=== PATIENT | male | born 1955 | race Caucasian/White ===

== ENCOUNTER 2019-01-29 13:38 | Inpatient (IN) ==
[2019-01-29] MEDS ORDERED: Ondansetron 4 MG/2 ML VIAL IVP PRN (16:13)
[2019-01-29] MEDS ORDERED: Dextrose Gel 15 GM/37.5 ML TUBE PO PRN ×2 (16:30)
[2019-01-29] MEDS ORDERED: *HR* Dextrose 50 % in Water (Syg) 50 ML SYRINGE IVP PRN (16:30)
[2019-01-29] MEDS ORDERED: Potassium Chloride Elixir 20 MEQ/15 ML UDC PO ONE (16:30)
[2019-01-29] MEDS ORDERED: D5% in Water 1,000 ML IVC PRN (16:30)
--- NOTE | 2019-01-29 16:34 | Internal Med History&Physical ---
Date of Encounter: 01/29/19 Time of Encounter: 16:10 Internal Medicine - H&P: HPI Chief complaint: Shortness of breath Admitted From: Hospital to Hospital Transfer Plans for Post Hospital Care: Home History of present illness: Mr. Durán is a 63 year old male with history of COPD on 2 L of oxygen, type II DM, HTN was transferred from [facility] for PNA and elevated BILIRUBIN. Patient was short of breath for 3 weeks duration and he was placed on steroids and antibiotics by his PCP. Shortness of breath did not get any better so he came into [facility]. He has right-sided pleuritic chest pain which increases with deep inspiration. He denied nausea/vomiting/abdominal pain/aching/jaundice however he endorsed cold color urine for the past 3 days. He denied dysuria, hematuria or polyuria. He has no change in his stool color. At [facility], patient had chest x-ray with finding of right lower lobe pneumonia, CT abdomen and pelvis without acute finding. Blood work was significant for leukocytosis with WBC count of 19, lactic acid was normal, elevated bilirubin and ALK.PH. Past Med Surg Social Fam HX - Past Medical History Source: patient Medical history: aortic aneurysm, COPD, diabetes, GERD, hyperlipidemia, hypertension Additional medical history: thoracic aortic aneurysm Psychiatric history: no psych history - Past Surgical History Surgical History: appendectomy, herniorrhaphy, other Additional surgical history: EGD. COLONOSCOPY. 12/28/17 EGD @[facility] W/DR LOFTON - Social History Smoking Status: Former smoker Smokeless Tobacco Status: No Alcohol use: none Drug use: none Current living situation: Home Activity Level: Independent ambulation Recent Out of Country Travel Within the Last 8 Weeks: No Exposure or Possible Exposure to Illness During Travel: No - Family History Mother Adopted: No Family Member Ethnicity: Non- Living Status: Still Living Hx Family Cardiac Disorders: Yes (AAA) Hx Family Cancer: Yes (Breast cancer) Father Living Status: Hx Family Cardiac Disorders: Yes (Father and Mother) Hx Family Respiratory Disorders: No (Sister-COPD) Hx Family Cancer: Yes (sister-metastatic cancer) Hx Family GI Disorders: No Hx Family Endocrine Disorder: Yes (mother-DM) Hx Family Neuromuscular Disorders: No Hx Family Neurologic Disorders: No Hx Family HEENT Disorders: No Hx Family Autoimmune Disorders: No - Additional Family History Additional family history: Reviewed and noncontributory Internal Medicine - H&P: Meds Metformin [Glucophage] 1,000 mg PO BIDWM 01/30/15 [History] Aspirin 81 mg PO DAILY 05/04/16 [History] Lisinopril [Zestril] 5 mg PO DAILY 05/04/16 [History] Pravastatin Sodium [Pravachol] 20 mg PO DAILY 05/04/16 [History] Albuterol Sulfate [Proair Hfa] 2 puff IH Q4H PRN 10/03/17 [History] Mometasone/Formoterol [Dulera 100 Mcg/5 Mcg Inhaler] 13 gm IH BID #1 hfa.aer.ad 10/04/17 [Rx] Fluticasone Propionate [Flovent Diskus] 50 mcg IH DAILY 12/28/17 [History] Ipratropium/Albuterol Sulfate [Combivent Respimat Inhal [place]] 4 gm IH QID 12/28/17 [History] Montelukast [Singulair] 10 mg PO DAILY 12/28/17 [History] Omeprazole [PriLOSEC] 40 mg PO DAILY 12/28/17 [History] Combivent Respimat 20-100 Mcg 1 puff IH QID 04/30/18 [History] Mucinex 1 tab PO Q12HR PRN 04/30/18 [History] Oxygen 2 l IH DAILY PRN 04/30/18 [History] Allergy/AdvReac Type Severity Reaction Status Date / Time No Known Allergies Allergy Verified 02/13/18 15:21 All Systems PM: A 10-system review of systems was performed and is negative for pertinent findings except as documented above in the HPI. - Constitutional Vitals: Temp Pulse Resp BP Pulse Ox 98.3 F 81 16 119/70 91 01/29/19 15:40 01/29/19 15:40 01/29/19 15:40 01/29/19 15:40 01/29/19 15:40 Exam: General: Patient is alert, oriented 3. Head: Atraumatic, normal inspection, Eye: EOMI, PERRLA, ENT: Mucous membranes moist. Neck: Normal inspection, no meningismus. Respiratory: Scattered wheezing, right basilar rhonchi Cardiovascular: Regular rate and regular rhythm, S1 and S2 audible. No murmurs, rubs, or gallops. GI: Soft, nondistended, normal bowel sounds. Extremities:No joint swelling, pedal edema, or tenderness noted. Neurological: Alert, oriented 3, no focal deficits. Psychiatric: normal affect, normal mood. Skin: Dry, intact, warm. Normal color. No rashes. Internal Med - H&P Results - EKG Data EKG shows normal: sinus rhythm - EKG Data Prior EKG available for review: yes When compared to previous EKG: there is no significant change - Assessment and Plan (1) CAP (community acquired pneumonia) Current Visit: Yes Status: Acute Qualifiers: Laterality: right Lung location: lower lobe of lung Qualified Code(s): J18.1 - Lobar pneumonia, unspecified organism (2) DM type 2 (diabetes mellitus, type 2) Current Visit: Yes Status: Chronic Qualifiers: Diabetes mellitus terminal clerk insulin use: without correction use Diabetes mellitus complication status: without complication Qualified Code(s): E11.9 - Type 2 diabetes mellitus without complications (3) Hyperbilirubinemia Current Visit: Yes Status: Acute (4) Hypertension Current Visit: Yes Status: Chronic Qualifiers: Hypertension type: essential hypertension Qualified Code(s): I10 - Essential (primary) hypertension - Summary of Assessment and Plan Summary of Assessment and Plan: Community-acquired Pneumonia: 2/2 PNA, BCx, Streptococcus and Legionella antigens are pending. Continue with Zosyn and azithromycin. Check respiratory viral panel. MRSA swab is pending. On home requirement of 2 L of oxygen. Leukocytosis: 2/2 above, check CBC tomorrow. Hyperbilirubinemia: Likely from sepsis, will check check hepatitis panel. LFT TOMORROW. T2DM: hold oral medications, LSSI TIDAC, ADA diet. COPD: continue home dose inhalers HTN: Continue home medication DVT prophylaxis: Subcutaneous heparin - Time Spent With Patient Total time spent is greater than 50% in coordination of care (as documented) at patient's floor/unit and/or counseling patient:
[2019-01-29] MEDS ORDERED: Azithromycin 500 MG in 0.9 % Sodium Chloride 250 ML IVPB SCH (17:00)
[2019-01-29] MEDS: Acetaminophen 325 MG TABLET PO PRN (17:54)
[2019-01-29] MEDS: 0.9 % Sodium Chloride 1,000 ML IVC SCH (17:59)
[2019-01-29] MEDS: *HR* Heparin 5,000 UNIT/ML VIAL SQ SCH (18:22)
[2019-01-29] MEDS: Insulin LISPRO 300 UNITS/3 ML VIAL SQ SCH (19:29)
[2019-01-29] MEDS: Piperacillin/Tazobactam 3.375 GM in 0.9 % Sodium Chloride Mini Bag 100 ML IVPB SCH (21:28)
[2019-01-29 23:43] LABS: Adenovirus Not Detected (Not Detect); Bordetella Pertussis Not Detected (Not Detect); Chlamydophila pneumoniae Not Detected (Not Detect); Coronavirus 229E Not Detected (Not Detect); Coronavirus HKU1 Not Detected (Not Detect); Coronavirus NL63 Not Detected (Not Detect); Coronavirus OC43 Not Detected (Not Detect); Human Metapneumovirus Not Detected (Not Detect); Human Rhinovirus/Enterovirus DETECTED (Not Detect); Influenza A Subtype 2009 H1 Not Detected (Not Detect); Influenza A Untypeable Not Detected (Not Detect); Influenza B Not Detected (Not Detect); Mycoplasma pneumoniae Not Detected (Not Detect); Parainfluenza Virus 1 Not Detected (Not Detect); Parainfluenza Virus 2 Not Detected (Not Detect); Parainfluenza Virus 3 Not Detected (Not Detect); Parainfluenza Virus 4 Not Detected (Not Detect); Respiratory Syncytial Virus Not Detected (Not Detect)
[2019-01-30] MEDS: *HR* Heparin 5,000 UNIT/ML VIAL SQ SCH ×2 (05:28→18:13)
[2019-01-30 05:59] LABS: Basophils # 0.1 K/mcL (0.0-0.2); Basophils % 0.4 %; Eosinophils # 0.3 K/mcL (0.0-0.6); Hematocrit 33.6 % (37.5-50.1); Hemoglobin 11.1 g/dL (12.9-16.9); Immature Granulocytes % 1.5 % (0-4); Lymphocytes # 1.5 K/mcL (0.6-4.6); Mean Corpuscular Hemoglobin 29.2 pg (28.0-33.3); Mean Corpuscular Volume 88.4 fL (83.0-100.0); Mean Platelet Volume 9.8 fL (9.4-12.4); Monocytes # 1.5 K/mcL (0.0-1.3); Monocytes % 10.9 %; Neutrophils # 10.2 K/mcL (1.6-8.9); Platelet Count 218 K/mcL (140-400); Red Cell Distribution Width 12.6 % (11.5-14.5); Segmented Neutrophils % 74.2 %; White Blood Count 13.7 K/mcL (4.3-11.1)
[2019-01-30 06:56] LABS: BUN/Creatinine Ratio 16 (6-26); Blood Urea Nitrogen 10 mg/dL (8-23); Calcium 8.1 mg/dL (8.6-10.3); Carbon Dioxide 24 mEq/L (23-29); Chloride 103 mEq/L (98-107); Glucose 115 mg/dL (70-105); Magnesium 1.6 mg/dL (1.6-2.6); Osmolality,Calculated 286 (280-300); Phosphorous 2.4 mg/dL (2.7-4.5); Potassium 3.7 mEq/L (3.5-5.1); Sodium 138 mEq/L (136-145); eGFR For African Americans > 60 (> 60); eGFR For Non-African Americans > 60 (> 60)
[2019-01-30] MEDS: Piperacillin/Tazobactam 3.375 GM in 0.9 % Sodium Chloride Mini Bag 100 ML IVPB SCH ×3 (08:17→23:37)
[2019-01-30] MEDS: Acetaminophen 325 MG TABLET PO PRN ×2 (08:17→23:48)
[2019-01-30] MEDS: 0.9 % Sodium Chloride 1,000 ML IVC SCH ×3 (08:18→17:31)
[2019-01-30] MEDS ORDERED: Ipratropium/Albuterol Neb 3 ML IH PRN (08:34)
[2019-01-30 09:53] LABS: Alanine Aminotransferase 17 Units/L (7-52); Albumin 3.1 g/dL (3.5-5.7); Albumin/Globulin Ratio 1.2 (1.1-2.2); Alkaline Phosphatase 224 Units/L (34-104); Aspartate Amino Transferase 12 Units/L (13-39); Bilirubin,Direct 0.6 mg/dL (0.0-0.2); Bilirubin,Indirect 0.6 mg/dL (0.0-1.2); Bilirubin,Total 1.2 mg/dL (0.3-1.0); Globulin 2.6 g/dL (2.4-3.5); Total Protein 5.7 g/dL (6.4-8.9)
[2019-01-30] MEDS: Insulin LISPRO 300 UNITS/3 ML VIAL SQ SCH ×3 (10:35→17:31)
[2019-01-30] MEDS: Ipratropium/Albuterol Neb 3 ML IH SCH ×3 (10:57→22:43)
--- NOTE | 2019-01-30 11:04 | Internal Med Progress Note ---
Hospitalist Progress Note - Encounter Date of Encounter: 01/30/19 Time of Encounter: 08:40 - Subjective Interval History: Patient was seen this morning, he feels better. Still complaining about pleuritic chest pain. He denied nausea/vomiting or abdominal pain. - Exam Vitals: Temp Pulse Resp BP Pulse Ox 98.6 F 84 20 128/74 93 01/30/19 07:08 01/30/19 07:08 01/30/19 07:08 01/30/19 07:08 01/30/19 07:08 Exam: General: Patient is alert, oriented 3. Head: Atraumatic, normal inspection, Eye: EOMI, PERRLA, ENT: Mucous membranes moist. Neck: Normal inspection, no meningismus. Respiratory: Scattered wheezing, right basilar rhonchi Cardiovascular: Regular rate and regular rhythm, S1 and S2 audible. No murmurs, rubs, or gallops. GI: Soft, nondistended, normal bowel sounds. Extremities:No joint swelling, pedal edema, or tenderness noted. Neurological: Alert, oriented 3, no focal deficits. Psychiatric: normal affect, normal mood. Skin: Dry, intact, warm. Normal color. No rashes. - Assessment and Plan (1) CAP (community acquired pneumonia) Current Visit: Yes Status: Acute (2) DM type 2 (diabetes mellitus, type 2) Current Visit: Yes Status: Chronic (3) Hyperbilirubinemia Current Visit: Yes Status: Acute (4) Hypertension Current Visit: Yes Status: Chronic (5) COPD (chronic obstructive pulmonary disease) Current Visit: No Status: Chronic - Summary of Assessment and Plan Summary of Assessment and Plan: Community-acquired Pneumonia: 2/2 PNA, BCx, Streptococcus and Legionella antigens are -. Continue with Zosyn day 2 and DC azithromycin. respiratory viral panel is + for rhino virus. On home requirement of 2 L of oxygen. Leukocytosis: 2/2 above, improving. check CBC tomorrow. Hyperbilirubinemia: Improving, Likely from sepsis, hepatitis panel is pending. LFT TOMORROW. Ultrasound abdomen is negative for cholecystitis. T2DM: hold oral medications, LSSI TIDAC, ADA diet. COPD: continue home dose inhalers, dounebs QID and PRN [id number] HTN: Continue home medication DVT prophylaxis: Subcutaneous heparin - Time Spent with Patient Total time spent is greater than 50% in coordination of care (as documented) at patient's floor/unit and/or counseling patient: Internal Medicine: Result - Labs CBC & Chem 7: 01/30/19 05:47 01/30/19 05:47 Labs: Short CBC 01/30/19 Range/Units 05:47 WBC 13.7 H (4.3-11.1) K/mcL Hgb 11.1 L D (12.9-16.9) g/dL Hct 33.6 L (37.5-50.1) % Plt Count 218 (140-400) K/mcL Neutrophils # 10.2 H (1.6-8.9) K/mcL BMP 01/30/19 05:47 Sodium 138 Potassium 3.7 Chloride 103 Carbon Dioxide 24 BUN 10 Creatinine 0.64 L Glucose 115 H Calcium 8.1 L Liver Function 01/29/19 01/30/19 Range/Units 16:46 05:47 Total Bilirubin 1.2 H (0.3-1.0) mg/dL Direct Bilirubin 0.6 H (0.0-0.2) mg/dL GGT 198 H (2-30) Units/L AST 12 L (13-39) Units/L ALT 17 (7-52) Units/L Alkaline Phosphatase 224 H (34-104) Units/L Albumin 3.1 L (3.5-5.7) g/dL - Impressions Impressions Abdomen Ultrasound 01/30/19 09:15 IMPRESSION: Unremarkable right upper quadrant ultrasound. D/ / 01/30/2019 09:47:45 Anders Hernandez MD / Aurelia Henry Interpreting Provider: Anders Hernandez MD Consult Discharge Plan - [place] [facility] [place] [Primary Care Provider] - __ (1) CAP (community acquired pneumonia) Qualifiers: Laterality: right Lung location: lower lobe of lung Qualified Code(s): J18.1 - Lobar pneumonia, unspecified organism (2) DM type 2 (diabetes mellitus, type 2) Qualifiers: Diabetes mellitus senior living insulin use: without termite control service representative use Diabetes mellitus complication status: without complication Qualified Code(s): E11.9 - Type 2 diabetes mellitus without complications (4) Hypertension Qualifiers: Hypertension type: essential hypertension Qualified Code(s): I10 - Essential (primary) hypertension (5) COPD (chronic obstructive pulmonary disease) Qualifiers: COPD type: unspecified COPD Qualified Code(s): J44.9 - Chronic obstructive pulmonary disease, unspecified
[2019-01-30 11:56] LABS: Hepatitis B Surface Antigen Nonreactive (Nonreactive)
[2019-01-30 12:25] LABS: Hepatitis A Antibody IgM Nonreactive (Nonreactive)
[2019-01-30 12:26] LABS: Hepatitis B Core IgM Nonreactive (Nonreactive); Hepatitis C Virus Antibody Nonreactive (Nonreactive)
[2019-01-30] MEDS ORDERED: Budesonide/Formoterol 160/4.5 1 PUFF INH IH SCH (22:00)
[2019-01-31 01:31] LABS: Hematocrit 33.1 % (37.5-50.1); Hemoglobin 10.5 g/dL (12.9-16.9); Mean Corpuscular HGB Conc 31.7 g/dL (31.6-35.5); Mean Corpuscular Hemoglobin 29.7 pg (28.0-33.3); Mean Corpuscular Volume 93.5 fL (83.0-100.0); Mean Platelet Volume 9.7 fL (9.4-12.4); Platelet Count 241 K/mcL (140-400); Red Blood Count 3.54 M/mcL (4.19-5.50); Red Cell Distribution Width 12.4 % (11.5-14.5); White Blood Count 13.1 K/mcL (4.3-11.1)
[2019-01-31 01:49] LABS: BUN/Creatinine Ratio 11 (6-26); Blood Urea Nitrogen 7 mg/dL (8-23); Carbon Dioxide 23 mEq/L (23-29); Chloride 105 mEq/L (98-107); Glucose 110 mg/dL (70-105); Osmolality,Calculated 285 (280-300); Potassium 3.2 mEq/L (3.5-5.1); Sodium 138 mEq/L (136-145); eGFR For African Americans > 60 (> 60); eGFR For Non-African Americans > 60 (> 60)
[2019-01-31] MEDS ORDERED: Ketorolac 15 MG/ML VIAL IVP ONE (03:46)
[2019-01-31] MEDS: Ipratropium/Albuterol Neb 3 ML IH SCH (03:48)
[2019-01-31] MEDS: *HR* Heparin 5,000 UNIT/ML VIAL SQ SCH (05:14)
[2019-01-31 07:23] VITALS: BP 126/70
[2019-01-31] MEDS: Insulin LISPRO 300 UNITS/3 ML VIAL SQ SCH (07:40)
[2019-01-31] MEDS ORDERED: Potassium Chloride Elixir 20 MEQ/15 ML UDC PO ONE (07:42)
--- NOTE | 2019-01-31 08:01 | Discharge Summary ---
- NOTES TO OUTPATIENT PROVIDER Notes to Outpatient Provider: Patient was admitted for right lower lobe pneumonia and was treated with IV antibiotics. He also had elevated bilirubin likely from his infection with negative abdominal ultrasound. He may need follow-up x-ray in 3 month to confirm resolution. Orders not resulted at time of discharge: Pending orders 01/29/19 16:46 Culture,Blood [BC] Stat 01/30/19 14:00 Culture,Sputum with Gram Stain [RM] Routine Date of Encounter: 01/31/19 Time of Encounter: 08:00 - Discharge Diagnosis (1) CAP (community acquired pneumonia) Priority: Primary Status: Resolved Qualifiers: Laterality: right Lung location: lower lobe of lung Qualified Code(s): J18.1 - Lobar pneumonia, unspecified organism (2) DM type 2 (diabetes mellitus, type 2) Priority: Secondary Status: Chronic Qualifiers: Diabetes mellitus detention insulin use: without vermin exterminator use Diabetes mellitus complication status: without complication Qualified Code(s): E11.9 - Type 2 diabetes mellitus without complications (3) Hyperbilirubinemia Priority: Secondary Status: Resolved (4) Hypertension Priority: Secondary Status: Chronic Qualifiers: Hypertension type: essential hypertension Qualified Code(s): I10 - Essential (primary) hypertension (5) COPD (chronic obstructive pulmonary disease) Priority: Secondary Status: Chronic Qualifiers: COPD type: unspecified COPD Qualified Code(s): J44.9 - Chronic obstructive pulmonary disease, unspecified Hospital course: Mr. Durán is a 63 year old male with history of COPD on 2 L of oxygen, ST and who came into the hospital due to right lower lobe pneumonia. Patient was treated with IV antibiotics with significant improvement in his symptoms. He also had elevated bilirubin which was related to his underlying infection. Ultrasound of the abdomen was negative. Today, patient is hemodynamically stable, afebrile, clinically stable. He will be discharged home in stable condition. He will resume 5 days of antibiotics and steroids and follow up with his PCP in 5 days. Discharge discussed with: patient - Time Spent with Patient Total time spent providing and/or coordinating discharge services: 20 minutes - Discharge Medications Prescriptions: New Amoxicillin/Clavulanate [Augmentin] 875 mg PO BIDWM #10 tablet Continued Lisinopril [Zestril] 5 mg PO DAILY Aspirin 81 mg PO DAILY Pravastatin Sodium [Pravachol] 20 mg PO DAILY Omeprazole [PriLOSEC] 40 mg PO DAILY Montelukast [Singulair] 10 mg PO DAILY Ipratropium/Albuterol Sulfate [Combivent Respimat 20-100 Mcg] 4 gm IH QID Fluticasone Propion/Salmeterol [Wixela 500-50 Inhub] 1 puff PO BID Metformin HCl 1,000 mg PO BID Sertraline [Zoloft] 50 mg PO DAILY Fluticasone Propionate Nasal [Flonase] 50 mcg NS DAILY Albuterol Sulfate [Proair Hfa] 2 puff IH Q4H PRN PRN Reason: Shortness Of Breath Home Medications: Aspirin 81 mg PO DAILY 05/04/16 [History] Lisinopril [Zestril] 5 mg PO DAILY 05/04/16 [History] Pravastatin Sodium [Pravachol] 20 mg PO DAILY 05/04/16 [History] Albuterol Sulfate [Proair Hfa] 2 puff IH Q4H PRN 10/03/17 [History] Montelukast [Singulair] 10 mg PO DAILY 12/28/17 [History] Omeprazole [PriLOSEC] 40 mg PO DAILY 12/28/17 [History] Ipratropium/Albuterol Sulfate [Combivent Respimat 20-100 Mcg] 4 gm IH QID 04/30/18 [History] Fluticasone Propion/Salmeterol [Wixela 500-50 Inhub] 1 puff PO BID 01/30/19 [History] Fluticasone Propionate Nasal [Flonase] 50 mcg NS DAILY 01/30/19 [History] Metformin HCl 1,000 mg PO BID 01/30/19 [History] Sertraline [Zoloft] 50 mg PO DAILY 01/30/19 [History] Amoxicillin/Clavulanate [Augmentin] 875 mg PO BIDWM #10 tablet 01/31/19 [Rx] Allergies/Adverse Reactions: Allergy/AdvReac Type Severity Reaction Status Date / Time No Known Allergies Allergy Verified 02/13/18 15:21 Date of admission: 01/29/19 18:00 Primary care physician: Osei Boyd MD Consults: 01/30/19 08:42 Consult to Nurse Navigator [CONS] Routine Comment: PNEUMONIA - Constitutional Vitals: Temp Pulse Resp BP Pulse Ox 98.3 F 79 16 126/70 95 01/31/19 07:10 01/31/19 07:10 01/31/19 07:10 01/31/19 07:10 01/31/19 07:10 Exam: General: Patient is alert, oriented 3. No distress Head: Atraumatic, normal inspection, Eye: EOMI, PERRLA, ENT: Mucous membranes moist. Neck: Normal inspection, no meningismus. Respiratory: right basilar rhonchi Cardiovascular: Regular rate and regular rhythm, S1 and S2 audible. No murmurs, rubs, or gallops. GI: Soft, nondistended, normal bowel sounds. Extremities:No joint swelling, pedal edema, or tenderness noted. Neurological: Alert, oriented 3, no focal deficits. Psychiatric: normal affect, normal mood. Skin: Dry, intact, warm. Normal color. No rashes. - Patient Status Disposition: Home, Self-Care Condition: Good Functional capacity at discharge: independent ambulation Overall status at discharge: patient is back to baseline - Discharge Instructions Follow Up With: Osei Boyd MD [Primary Care Provider] - - Diet and Activity Activity: resume usual activities as tolerated Diet: low salt diet
[2019-01-31] MEDS: Piperacillin/Tazobactam 3.375 GM in 0.9 % Sodium Chloride Mini Bag 100 ML IVPB SCH (08:21)
[2019-01-31] MEDS ORDERED: Aspirin 81 MG TAB.CHEW PO SCH (09:00)
[2019-01-31] MEDS ORDERED: Fluticasone Propionate Nasal 50 MCG/SPRAY BOTTLE NS SCH (09:00)
== END 2019-01-31 09:00 | disposition home or self-care (01) | DRG 139 ==
LOC: 3BNU → SUATTDRO 15:01
PROVIDERS: ADMIT Internal Medicine; ATTEND Internal Medicine